=== PATIENT | male | born 1975 | race African-American/Black ===

== ENCOUNTER 2025-07-10 19:57 | Inpatient (IN) | payer MEDICAID ==
[~2025-07-10] VITALS: Ht 172.7 cm; Wt 99.8 kg
[2025-07-10 20:01] VITALS: O2SAT 99
[2025-07-10] MEDS: HYDRALAZINE 20MG/ML VIAL IV ONE (20:27)
[2025-07-10] MEDS: NITROGLYCERIN OINT 1GM/INCH UDPKT TD ONE (20:27)
[2025-07-10 20:32] LABS: BASOPHILS % 1.2 % (0.0-2.0); EOSINOPHILS % 3.0 % (0.0-5.0); HEMATOCRIT. 44.4 % (42.0-52.0); HEMOGLOBIN. 14.8 g/dL (14.0-18.0); LYMPHOCYTES % 33.8 % (20.0-50.0); MONOCYTES % 8.5 % (2.0-8.0); NEUTROPHILS % 53.5 % (40.0-76.0); RED BLOOD CELL COUNT 4.99 mill/uL (4.7-6.1); RED CELL DISTRIBUTION WIDTH 13.9 % (11.6-14.6)
[2025-07-10 20:43] LABS: MEAN PLATELET VOLUME 8.7 fl (7.4-10.4); PLATELET 255 x1000/uL (130-400)
[2025-07-10 20:44] LABS: INR 1.0
[2025-07-10 20:47] LABS: CREATININE 1.3 mg/dL (0.6-1.3)
[2025-07-10 20:48] LABS: PROTEIN TOTAL 7.5 g/dL (6.0-8.3); UREA NITROGEN BLOOD 12 mg/dL (9-23)
[2025-07-10 20:49] LABS: TROPONIN I HIGH SENSITIVITY 12 ng/L (3.0-53)
[2025-07-10 20:50] LABS: ASPARTATE AMINOTRANSFERASE 31 IU/L (<34); BILIRUBIN DIRECT 0.2 mg/dL (<=3.0); BILIRUBIN TOTAL 0.8 mg/dL (0.1-1.0)
[2025-07-10] MEDS: ASPIRIN 325MG EC TABLET PO ONE (22:10)
[2025-07-10 23:29] LABS: TROPONIN I HIGH SENSITIVITY 11 ng/L (3.0-53)
[2025-07-11 00:30] LABS: *AMPHETAMINES SCREEN URINE NEGATIVE (NEGATIVE); *BARBITURATES SCREEN URINE NEGATIVE (NEGATIVE); *BENZODIAZEPINES SCREEN URINE NEGATIVE (NEGATIVE); *COCAINE SCREEN URINE NEGATIVE (NEGATIVE)
[2025-07-11 00:31] LABS: CANNABINOID URINE SCREEN PRESUMPTIVE POSITIVE (NEGATIVE); ECSTASY MDMA SCREEN URINE NEGATIVE (NEGATIVE); METHADONE URINE SCREEN NEGATIVE (NEGATIVE); OPIATES URINE SCREEN NEGATIVE (NEGATIVE); PHENCYCLIDINE URINE SCREEN NEGATIVE (NEGATIVE)
[2025-07-11] MEDS: HYDROCODONE/ACETAMINOPHEN 5/325MG TABLET PO PRN (03:23)
[2025-07-11] MEDS: ACETAMINOPHEN 325MG TABLET PO NR (03:47)
[2025-07-11] MEDS: HYDRALAZINE 20MG/ML VIAL IV PRN (04:24)
[2025-07-11] MEDS ORDERED: ACETAMINOPHEN 650MG/20.3ML UDC PO PRN (05:45)
[2025-07-11 05:49] VITALS: BP 152/68; PULSE 90; RESP 18; TEMP 36.3624
[2025-07-11] MEDS ORDERED: NALOXONE HCL 0.4MG/ML VIAL IV PRN (07:45)
[2025-07-11] MEDS ORDERED: ACETAMINOPHEN 325MG TABLET PO PRN (07:45)
[2025-07-11 08:00] VITALS: BP 138/92; PULSE 99; RESP 18; TEMP 35.7; O2SAT 99
[2025-07-11] MEDS: METOPROLOL TARTRATE 50MG TABLET PO SCH (09:00)
[2025-07-11] MEDS: ASPIRIN 81MG TABLET PO SCH (10:23)
[2025-07-11 12:00] VITALS: BP 155/81; PULSE 95; RESP 18; TEMP 36.1; O2SAT 98
[2025-07-11] MEDS ORDERED: NIFE-32 MT (13:34)
[2025-07-11 14:11] VITALS: BP 152/102; PULSE 93; RESP 16; TEMP 97.1
[2025-07-11 16:00] VITALS: BP 166/102; PULSE 95; RESP 18; TEMP 36.3; O2SAT 95
[2025-07-11] MEDS: CLONIDINE 0.1MG TABLET PO SCH (16:43)
[2025-07-11] MEDS: NIFEDIPINE XL 60MG TAB PO SCH (16:43)
[2025-07-11] MEDS: HYDRALAZINE HCL 100MG TABLET PO SCH (18:03)
[2025-07-11] MEDS: HYDRALAZINE HCL 100MG TABLET PO NR (18:06)
[2025-07-11] MEDS ORDERED: ATORVASTATIN CALCIUM 40MG TABLET PO SCH (21:00)
== END 2025-07-11 19:20 | disposition left against medical advice (07) | DRG 199 ==
LOC: ER 19:57 → 6WST 21:52 → EDBEDREQTM 22:09 → EDBEDREQ 22:09 → ENRESERV 07-11 04:02
PROVIDERS: ADMIT Internal Medicine; ATTEND Internal Medicine
DX: I16.0 Hypertensive urgency (principal); E66.9 Obesity, unspecified; I10 Essential (primary) hypertension; Z68.35 Body mass index [BMI] 35.0-35.9, adult
CPT/HCPCS: 36415; 71045; 80048; 80076; 80305; 80320; 83880; 84484; 85025; 85379; 93005; 96374; 99285; J0360; G0480